=== PATIENT | female | born 2000 | race Two or more races ===

== ENCOUNTER 2022-03-13 22:50 | Emergency (ER) | payer OTHER ==
[~2022-03-13] VITALS: Ht 167.6 cm; Wt 57.6 kg
[2022-03-13 22:52] VITALS: BP 122/81
== END 2022-03-13 23:24 | disposition home or self-care (01) ==
LOC: ER 22:50
DX: S61.317D Laceration without foreign body of left little finger with damage to nail, subsequent encounter (principal); F17.200 Nicotine dependence, unspecified, uncomplicated; X58.XXXD Exposure to other specified factors, subsequent encounter
CPT/HCPCS: A6403